=== PATIENT | male | born 1935 | race Caucasian/White ===

== ENCOUNTER 2016-06-07 09:54 | Emergency (ER) | payer MEDICARE ==
--- NOTE | 2016-06-07 10:31 | UC ---
Lower Extremity/Ankle HPI - HPI Summary HPI Summary: Starting 3 days ago pt has pain in the right foot, exactly where he fractured the right foot 2 years ago. Pt states both feet were bothering him last week and went to PCP and was given a medication for diabetic nerve pain without relief. The left foot feels better but not the right. He did not have xrays done last week. - History of Current Complaint Chief Complaint: UCLowerExtremity Stated Complaint: RIGHT FOOT PAIN Time Seen by Provider: 06/07/16 10:18 - Allergies/Home Medications Allergies/Adverse Reactions: Allergies Allergy/AdvReac Type Severity Reaction Status Date / Time Amoxicillin [From Augmentin] Allergy Severe tongue Verified 12/29/13 09:39 Ciprofloxacin [From Cipro] Allergy Severe tongue Verified 12/29/13 09:39 swelling Clavulanic Acid Allergy Severe tongue Verified 12/29/13 09:39 [From Augmentin] Penicillins Allergy Severe tongue Verified 12/29/13 09:39 swelling Atorvastatin [From Lipitor] Allergy Unknown Unknown Verified 12/29/13 09:39 Reaction Details Pravastatin [From Pravachol] Allergy Unknown Unknown Verified 12/29/13 09:39 Reaction Details Ibuprofen Allergy tongue Verified 12/29/13 09:39 swelling Home Medications: Home Medications Albuterol HFA INHALER* [Ventolin HFA Inhaler*] 2 puff INH Q6H PRN 06/07/16 [ History Confirmed 06/07/16] Dorzolamide 2% OPTH (NF) [Trusopt 2% OPTH (NF)] 1 drop BOTH EYES BID 06/07/16 [ History Confirmed 06/07/16] Dronedarone TAB* [Multaq TAB*] 400 mg PO BID 06/07/16 [History Confirmed ] Gabapentin CAP(*) [Neurontin 100 mg CAP(*)] 100 mg PO DAILY 06/07/16 [History Confirmed 06/07/16] Latanoprost 0.005% OPTH (NF) [Xalatan 0.005% OPTH (NF)] 1 drop BOTH EYES DAILY 06/07/16 [History Confirmed 06/07/16] Omeprazole 40 mg PO DAILY 06/07/16 [History Confirmed 06/07/16] Savision 1 DAILY 06/07/16 [History] PMH/Surg Hx/FS Hx/Imm Hx Previously Healthy: Yes Endocrine History Of: Reports: Diabetes Cardiovascular History Of: Reports: Cardiac Disorders, Hypertension Respiratory History Of: Reports: COPD - Surgical History Surgical History: Yes Surgery Procedure, Year, and Place: B/L cataract surgery - Family History Known Family History: Positive: Cardiac Disease, Diabetes - Social History Alcohol Use: Rare Substance Use Type: None Smoking Status (MU): Heavy Every Day Tobacco Smoker Type: Cigarettes Amount Used/How Often: 1 pack every 2 days Review of Systems Constitutional: Negative Skin: Negative Eyes: Negative ENT: Negative Respiratory: Negative Cardiovascular: Negative Gastrointestinal: Negative Genitourinary: Negative Motor: Negative Neurovascular: Negative Musculoskeletal: Arthralgia - not red, hot or swollen Neurological: Negative Psychological: Negative All Other Systems Reviewed And Are Negative: Yes Physical Exam Triage Information Reviewed: Yes Appearance: Well-Appearing, No Pain Distress, Well-Nourished - chronically ill appearing, in wheelchair Vital Signs: Initial Vital Signs Temp 98.2 F 06/07/16 10:12 Pulse 60 06/07/16 10:12 Resp 16 06/07/16 10:12 BP 91/61 06/07/16 10:12 Pulse Ox 100 06/07/16 10:12 Eye Exam: Normal ENT Exam: Normal Neck exam: Normal Neck: Positive: Supple, Nontender, No Lymphadenopathy Respiratory Exam: Normal Respiratory: Positive: Lungs clear, Normal breath sounds, No respiratory distress Cardiovascular Exam: Normal Cardiovascular: Positive: RRR, No Murmur, Pulses Normal, Brisk Capillary Refill Abdomen Description: Positive: Nontender, Soft Musculoskeletal: Positive: Other: - right great toe - mild tenderness latreal great toe. not red, no swelling. cool to touch. Neurological Exam: Normal Psychological Exam: Normal Skin Exam: Normal Lower Extremity Course/Dx - Course Course Of Treatment: rt great toe OA. xray rt foot - FINDINGS: There is osteopenia. There is moderate osteoarthritis about the first MTP joint. There is a small erosive change which raises the possibility of gouty arthritis although. the findings may all be osteoarthritic in nature. There is no significant soft tissue. swelling. There is probable old third metatarsal fracture which is now healed. No. additional findings. IMPRESSION: MODERATE FIRST MTP JOINT OSTEOARTHRITIS. CAVITY ARTHRITIS IS NOT EXCLUDED. RADIOGRAPHICALLY. stressed that he needs to f/u with director life sciences as well. - Differential Dx/Diagnosis Differential Diagnosis/HQI/PQRI: Contusion, Fracture (Closed), Gout, Sprain, Strain, Other - OA, DPN Provider Diagnoses: RT great toe OA Discharge - Discharge Plan Condition: Stable Disposition: HOME Patient Education Materials: Osteoarthritis (ED) Referrals: Kelley Roberts MD [Primary Care Provider] - 3 Days Additional Instructions: You can trt increasing the gabapentin 100mgs that you were started on from 100mgs each night to 300mgs each night to see if that is helpful. Please schedule a follow up appt with your director life sciences this week as well.
[2016-06-07 10:35] VITALS: BP 91/61
--- NOTE | 2016-06-07 11:04 | RAD ---
INDICATION: Right great toe pain COMPARISON: None TECHNIQUE: AP, lateral, and oblique views were obtained. FINDINGS: There is osteopenia. There is moderate osteoarthritis about the first MTP joint. There is a small erosive change which raises the possibility of gouty arthritis although the findings may all be osteoarthritic in nature. There is no significant soft tissue swelling. There is probable old third metatarsal fracture which is now healed. No additional findings. IMPRESSION: MODERATE FIRST MTP JOINT OSTEOARTHRITIS. CAVITY ARTHRITIS IS NOT EXCLUDED RADIOGRAPHICALLY
== END 2016-06-07 11:27 | disposition home or self-care (01) ==
LOC: UCCORT 09:54
DX: M19.071 Primary osteoarthritis, right ankle and foot (principal); M85.88 Other specified disorders of bone density and structure, other site; E11.9 Type 2 diabetes mellitus without complications; I10 Essential (primary) hypertension; J44.9 Chronic obstructive pulmonary disease, unspecified; Z98.42 Cataract extraction status, left eye; Z98.41 Cataract extraction status, right eye; Z88.6 Allergy status to analgesic agent; Z88.1 Allergy status to other antibiotic agents; Z88.0 Allergy status to penicillin; Z88.8 Allergy status to other drugs, medicaments and biological substances; F17.210 Nicotine dependence, cigarettes, uncomplicated
CPT/HCPCS: 99212; G0463

== ENCOUNTER 2016-08-06 09:25 | Emergency (ER) | payer MEDICARE ==
[2016-08-06 10:24] VITALS: BP 173/64
--- NOTE | 2016-08-06 10:54 | UC ---
Minor Trauma HPI - HPI Summary HPI Summary: right lower ribs pain x 7 days s/p fall one week ago on his left side, pain and tenderness right lower ribs, no cough , no sob, no chest pain increase pain with movement and coughing , improves with rest - History of Current Complaint Chief Complaint: UCGeneralIllness Stated Complaint: RIB PAIN (FELL LAST TUESDAY) Time Seen by Provider: 08/06/16 10:00 Hx Obtained From: Patient Onset/Duration: Sudden Onset, Lasting Days - 7, Still Present Onset Of Pain: Immediate Severity Initially: Moderate Severity Currently: Moderate Mechanism Of Injury: Fall From A Standing Position Aggravating Factor(s): Coughing, Deep Breaths, Movement Alleviating Factor(s): Rest - Allergies/Home Medications Allergies/Adverse Reactions: Allergies Allergy/AdvReac Type Severity Reaction Status Date / Time Amoxicillin [From Augmentin] Allergy Severe tongue Verified 08/06/16 10:19 Ciprofloxacin [From Cipro] Allergy Severe tongue Verified 08/06/16 10:19 swelling Clavulanic Acid Allergy Severe tongue Verified 08/06/16 10:19 [From Augmentin] Penicillins Allergy Severe tongue Verified 08/06/16 10:19 swelling Atorvastatin [From Lipitor] Allergy Unknown Unknown Verified 08/06/16 10:19 Reaction Details Pravastatin [From Pravachol] Allergy Unknown Unknown Verified 08/06/16 10:19 Reaction Details Ibuprofen Allergy tongue Verified 08/06/16 10:19 swelling Home Medications: Home Medications Isosorbide Dinitrate TAB* [Isordil TAB*] 1 dose PO DAILY 08/06/16 [History Confirmed 08/06/16] PMH/Surg Hx/FS Hx/Imm Hx Endocrine History Of: Reports: Diabetes Cardiovascular History Of: Reports: Cardiac Disorders, Hypertension Respiratory History Of: Reports: COPD - Surgical History Surgical History: Yes Surgery Procedure, Year, and Place: B/L cataract surgery. Tube right ear, removal of tube w/ skin graft on TM - Family History Known Family History: Positive: Cardiac Disease, Diabetes - Social History Alcohol Use: Rare Substance Use Type: None Smoking Status (MU): Heavy Every Day Tobacco Smoker Type: Cigarettes Amount Used/How Often: 1 pack every 2 days Review of Systems Constitutional: Negative Skin: Negative Eyes: Negative ENT: Negative Respiratory: Negative Cardiovascular: Negative Gastrointestinal: Negative All Other Systems Reviewed And Are Negative: Yes Physical Exam Triage Information Reviewed: Yes Appearance: Pain Distress, Obese Vital Signs: Initial Vital Signs Temp 97.9 F 08/06/16 10:02 Pulse 66 08/06/16 10:02 Resp 16 08/06/16 10:02 BP 173/64 08/06/16 10:02 Pulse Ox 100 08/06/16 10:02 Vital Signs Reviewed: Yes Eyes: Positive: Conjunctiva Clear ENT: Positive: Normal ENT inspection, Hearing grossly normal, Pharynx normal Neck exam: Normal Neck: Positive: Supple, Nontender, No Lymphadenopathy Respiratory: Positive: Chest non-tender, Lungs clear, Normal breath sounds, Other: - tendernss right lower ribs , + ecchymosis right upper abd area Cardiovascular: Positive: RRR, No Murmur, Pulses Normal Abdominal Exam: Normal Abdomen Description: Positive: Nontender, Soft. Negative: CVA Tenderness (R), CVA Tenderness (L), Distended, Guarding Bowel Sounds: Positive: Present Minor Trauma Course/Dx - Differential Dx/Diagnosis Provider Diagnoses: fracture ribs Discharge - Discharge Plan Condition: Stable Disposition: HOME Patient Education Materials: Rib Fracture (ED) Referrals: Kelley Roberts MD [Primary Care Provider] - 7 Days
--- NOTE | 2016-08-06 10:57 | RAD ---
HISTORY: Right thoracic trauma COMPARISONS: None VIEWS: 4, Frontal view of the chest with frontal and oblique views of the right hemithorax. FINDINGS: There is a minimally displaced fracture of the distal aspect of the right ninth rib. There is no appreciable pneumothorax. IMPRESSION: MINIMALLY DISPLACED RIGHT NINTH RIB FRACTURE, NO PNEUMOTHORAX
== END 2016-08-06 11:17 | disposition home or self-care (01) ==
LOC: UCCORT 09:25
DX: S22.31XA Fracture of one rib, right side, initial encounter for closed fracture (principal); W19.XXXA Unspecified fall, initial encounter; Y93.9 Activity, unspecified; Y92.9 Unspecified place or not applicable; Z88.1 Allergy status to other antibiotic agents; Z88.6 Allergy status to analgesic agent; Z88.0 Allergy status to penicillin; Z88.8 Allergy status to other drugs, medicaments and biological substances; E11.9 Type 2 diabetes mellitus without complications; I10 Essential (primary) hypertension; J44.9 Chronic obstructive pulmonary disease, unspecified; E66.9 Obesity, unspecified; Z98.42 Cataract extraction status, left eye; Z98.41 Cataract extraction status, right eye; F17.210 Nicotine dependence, cigarettes, uncomplicated
CPT/HCPCS: 99212; G0463